=== PATIENT | female | born 1990 | race Caucasian/White ===

== ENCOUNTER 2023-12-30 19:18 | Emergency (ER) | payer SELFPAY ==
[2023-12-30 19:28] VITALS: BP 124/88
--- NOTE | 2023-12-30 19:54 | ED.GENMED ---
Addendum entered and electronically signed by Wm Trinidad PA-C 01/03/24 07:25:
UCx growing staph epidermidis. Clinical presentation and UA findings likely represent contamination given high quantity of squamous cells/absence of WBC
Original Note:
History of Present Illness
General
Chief Complaint: Abdominal Pain
Time Seen by Provider: 12/30/23 19:54
Travel History
Have you had any contact with someone who has COVID-19?: No
Do you have any symptoms of coronavirus? Fever > 100 degrees, chills, cough, shortness of breath, sore throat, loss of taste or smell, muscle aches, or headache?: No
History of Present Illness
History of Present Illness:
HPI: Patient presents due to constipation type of abdominal pain. This persist despite trying enemas. She was also tried Colace. She has not had a good bowel movement over 7 days. She states she has been traveling a lot. She has not been able
to get in to see GI doctor. She is concerned that she might have 'an obstruction' however she has not had any vomiting.
EXAM:
GENERAL: Well appearing in no significant distress
HEENT: Moist oral mucosa
CARDIOVASCULAR: No murmurs, normal heart rate, regular rhythm, No chest wall tenderness
PULMONARY: No respiratory distress, breath sounds are clear and equal
ABDOMEN: Soft with no peritoneal signs, no tenderness, questionable if any distention
NEUROLOGIC: Excellent strength all extremities, no coordination deficits
PSYCHIATRIC: Appropriate mental status, normal insight and judgement
EXTREMITIES: Nontender, no edema, moves all extremities equally
SKIN: No rash, no lesions
TIME OF INITIAL ENCOUNTER: 8 PM
NUMBER AND COMPLEXITY OF PROBLEMS ADDRESSED AT THE ENCOUNTER
� Chronic conditions affecting care: Denies past medical history
� Acute Exacerbation and/or Progression of Chronic Illness: This is an acute problem
� Differential Diagnosis includes: Constipation, highly doubt volvulus, SBO very unlikely
AMOUNT AND/OR COMPLEXITY OF DATA TO BE REVIEWED AND ANALYZED
� I performed an independent evaluation of and my interpretation is:
EKG:
CT:
X-rays: X-ray shows no sign of obstruction but increase stool is noted
Laboratory Studies: CBC and chemistries unremarkable
Other:
� Review of other/old records: No old records available for review
� Clinical information was obtained by an independent historian: I spoke to at bedside
� Prescriptions/Medications Considered but not given:
� Further testing considered but not performed:
RISK OF COMPLICATIONS AND/OR MORBIDITY OR MORTALITY OF PATIENT MANAGEMENT
� Social determinants of health affecting care: Lives at home
� Discussion with other providers:
� Escalation of care including admission/observation vs risk of discharge considered: Basic labs unremarkable. She has already tried an enema today. She has not been vomiting. I performed digital rectal examination and I was
only able to disimpact a small amount and she requested that I stop due to discomfort. Recommended MiraLAX and glycerin suppository as she states she has not tolerated enemas at home. I did offer enema here however she declined.
Phy Exam
Physical Exam
Physical Exam:
See HPI
Course
Orders/Labs/Results
Orders:
Orders
12/30/23 19:34
Obstruct Series W/PA Chest [CR Obstruct Series W/pa Chest] Urgent
Comment:
Reason For Exam: possible obstruction
12/30/23 19:40
Complete Blood Count/With Diff Urgent
Comprehensive Metabolic Panel Urgent
HCG, Serum Qualitative Screen Urgent
Comment: ADD ON
Lipase Urgent
Urinalysis Reflex To Culture Urgent
Date Specimen was Collected: 12/30/23
Time Specimen was Collected: 19:27
Urine Microscopic Reflex Cult Urgent
Urine Culture Urgent
Z[facility]AL[facility] Source: U
Specimen Description:
Date Specimen was Collected: 12/30/23
Time Specimen was Collected: :
12/30/23 20:49
Add On- LAB Urgent
Tests Added?: serum hcg screen
Ketorolac [Toradol] 30 mg IM NOW STA
12/30/23 23:15
Polyethylene Glycol Powder [Miralax] 17 grams PO NOW STA
Abnormal Lab Results
12/30/23
19:40
Hct 36.6 L %
(37.0-47.0)
Absolute Neuts (auto) 7.7 H 10^3/uL
(1.4-6.5)
Neutrophils % 76.1 H %
(42.2-75.2)
Lymphocytes % 16.8 L %
(20.5-51.1)
Sodium 132 L mmol/L
(135-145)
Urine Nitrite (Reflex) Positive A
(Negative)
Urine Bacteria (Reflex) Many A
(Negative)
12/30/23 19:40
12/30/23 19:40
Vital Signs
Initial and Last Documented VS:
Initial Vital Signs
Temp Pulse Resp BP Pulse Ox
97.2 F 74 15 124/88 100
12/30/23 19:28 12/30/23 19:28 12/30/23 19:28 12/30/23 19:28 12/30/23 19:28
Last Documented Vital Signs
Temp Pulse Resp BP Pulse Ox
98 F 68 18 118/75 99
12/30/23 22:18 12/30/23 22:18 12/30/23 22:18 12/30/23 22:18 12/30/23 22:18
*Critical Care Note
Total Time (30-74mins, 75-104mins- exclusive of procedures): Not Applicable
ED Attending Note
-
Portions of this chart may have been created with voice recognition software.� Occasional wrong word or��sound alike� substitutions may have occurred due to the inherent limitations of voice recognition software.
Discharge Plan
Departure
Patient Disposition: Home (Routine Discharge)
Date of Disposition: 12/30/23
Time of Disposition: 23:36
Patient with high blood pressure during this ER visit?: Yes
Discharge Problem:
Constipation
Referrals:
UNKNOWN - PT DOES,NOT KNOW [Family Provider] -
Activity Restrictions/Additional Instructions:
The x-ray shows no sign of obstruction but does show a lot of constipation. I did try to manually disimpact you but only got a small amount of stool. I recommend taking [id number] MiraLAX twice daily. I also recommend that you try a glycerin
suppository. Your basic lab work is unremarkable however your white blood cell count was slightly high. White count can be elevated just because of the pain. I do recommend 3 [id number] ibuprofen/Motrin no more than 3 times per day with
food for a few days.
Interventions
Interventions:
*Risk Screen - Suicide Last Done: 12/30/23 19:28
*General Assessment Last Done: 12/30/23 19:28
*Neglect/Abuse Screening Last Done: 12/30/23 19:28
ED- Fall Risk Assessment Last Done: 12/30/23 19:58
*ED COVID-19 Vaccine History Last Done: 12/30/23 19:28
EP-Iquzwe-Tbkhmhtlcb Assessment Last Done: 12/30/23 19:58
Discharge Date and Time
Print Language: ROMANSH
[2023-12-30 19:55] LABS: % Basophils 0.3 % (0-2); % Eosinophils 1.1 % (0-6); % Immature Granulocytes 0.3 % (0-0.5); % Lymphocytes 16.8 % (20.5-51.1); % Monocytes 5.4 % (1.7-9.3); % Neutrophils 76.1 % (42.2-75.2); Absolute Eosinophils 0.1 10^3/uL (0-0.7); Absolute Lymphocytes 1.7 10^3/uL (1.2-3.4); Absolute Monocytes 0.6 10^3/uL (0.1-0.6); Absolute Neutrophils 7.7 10^3/uL (1.4-6.5); Hematocrit 36.6 % (37.0-47.0); Hemoglobin 13.3 g/dL (12.0-16.0); Mean Corp Hgb Conc. 36.3 g/dL (33.0-37.0); Mean Corpuscular Hgb 30.5 pg (27.0-31.0); Mean Corpuscular Volume 83.9 fL (81.0-99.0); Nucleated Red Blood Cells % 0 %; Platelet Count 277 10^3/uL (130-400); Red Blood Cell Count 4.36 10^6/uL (4.20-5.40); White Blood Cell Count 10.1 10^3/uL (4.8-10.8)
[2023-12-30 20:11] LABS: ALT (SGPT) 15 U/L (0-35); AST (SGOT) 25 U/L (14-36); Albumin 4.4 g/dl (3.5-5.0); Alkaline Phosphatase 65 U/L (38-126); Blood Urea Nitrogen 9 mg/dl (7-17); Calcium 9.8 mg/dl (8.4-10.2); Carbon Dioxide 26 mmol/L (22-30); Chloride 98 mmol/L (98-107); Glucose 99 mg/dl (70-99); Potassium 3.7 mmol/L (3.5-5.1); Sodium 132 mmol/L (135-145); Total Bilirubin 0.5 mg/dl (0.2-1.3); Total Protein 7.2 g/dl (6.3-8.2); eGFR > 60.00
[2023-12-30 20:12] LABS: Lipase 65 U/L (23-300)
[2023-12-30 20:51] LABS: Urine Albumin Negative (Neg - Trace); Urine Bilirubin Negative (Negative); Urine Character Clear (Clear); Urine Color Yellow; Urine Glucose Negative (Negative); Urine Ketone Negative (Negative); Urine Leukocyte Negative (Negative); Urine Nitrite Positive (Negative); Urine Occult Blood Negative (Negative); Urine Urobilinogen Negative (Neg - 1+); Urine pH 6.5 (5.0-9.0)
[2023-12-30] MEDS: TORADOL 30 MG IM (21:07)
[2023-12-30 21:29] LABS: HCG, Serum Qualitative Screen Negative
[2023-12-30 21:30] LABS: Urine Squamous Cell 16-20 /LPF (Few)
[2023-12-30 21:31] LABS: Urine Bacteria Many (Negative); Urine Red Blood Cell 0-2 /HPF (0-2); Urine White Cell 0-2 /HPF (0-5)
[2023-12-30 22:18] VITALS: BP 118/75
[2023-12-31] MEDS: MIRALAX 17 GRAMS PO
== END 2023-12-31 00:05 | disposition home or self-care (01) ==
LOC: EMR 19:18
PROVIDERS: EMERGENCY PHYSICIAN Emergency Medicine
DX: K59.00 Constipation, unspecified (principal)
CPT/HCPCS: 99284; 96372; 74022; 80053; 81003; 81015; 83690; 84703; 85025; 87086; 87147; 87186